=== PATIENT | male | born 1985 | race Caucasian/White ===

== ENCOUNTER 2020-08-22 01:31 | Inpatient (IN) | payer OTHER ==
[2020-08-22] MEDS ORDERED: ACETAMINOPHEN 1000 MG/100 ML VIAL (NON FORMULARY) IVPB ONE (01:58)
[2020-08-22 02:41] LABS: VENOUS O2 SATURATION 72.5 % (70-80); VENOUS PCO2 56.5 mmHg (38-52); VENOUS PH 7.345 (7.310-7.410)
[2020-08-22 02:46] LABS: BASO % 0.3 % (0-2.0); EOS % 0.2 % (0-4.5); HEMATOCRIT 38.9 % (35.4-49); HEMOGLOBIN 13.3 GM/dL (11.7-16.9); LYMPH % 14.6 % (8-40); MCH 30.7 pg (25.7-33.7); MCHC 34.3 g/dl (32.0-35.9); MEAN CELL VOLUME 89.7 fl (80-96); MEAN PLT VOLUME 8.2 fl (7.5-11.1); MONO % 12.9 % (3.8-10.2); PLATELET COUNT 172 K/MM3 (134-434); RBC 4.34 M/mm3 (4.00-5.60); RDW 13.8 % (11.9-15.9); WHITE BLOOD COUNT 5.7 K/mm3 (4.0-10.0)
[2020-08-22] MEDS ORDERED: DEXAMETHASONE SOD PHOSPHATE 10 MG/1 ML VIAL IVPUSH ONE (03:09)
[2020-08-22] MEDS ORDERED: LACTATED RINGERS SOLUTION 1000 ML INFUS.BAG IV ONE (03:09)
[2020-08-22 03:11] LABS: CHLORIDE 102 mmol/L (98-107); SODIUM 136 mmol/L (136-145)
[2020-08-22 03:13] LABS: BLOOD UREA NITROGEN 12.3 mg/dL (7-18); CALCIUM 8.2 mg/dL (8.5-10.1)
[2020-08-22 03:14] LABS: ALBUMIN 2.9 g/dl (3.4-5.0); ANION GAP 4 MMOL/L (8-16); CO2 30 mmol/L (21-32); GLUCOSE,RANDOM 105 mg/dL (74-106)
[2020-08-22 03:17] LABS: SGOT/AST 43 U/L (15-37); SGPT/ALT 35 U/L (13-61)
[2020-08-22 03:18] LABS: BILIRUBIN,TOTAL 0.2 mg/dL (0.2-1); LDH 286 U/L (87-246); TOT PROT 6.9 g/dl (6.4-8.2)
[2020-08-22 03:19] LABS: ALK PHOS 64 U/L (45-117)
[2020-08-22 03:32] LABS: INR 1.09 (0.83-1.09); PROTHROMBIN TIME (PATIENT) 13.1 SEC (9.7-13.0)
[2020-08-22 03:34] LABS: ACTIVATED PTT 33.2 SECONDS (25.2-36.5)
[2020-08-22] MEDS: SODIUM CHLORIDE 1,000 ML IV SCH (09:00)
[2020-08-22] MEDS ORDERED: ZINC SULFATE 220 MG CAPSULE (FP) ONE (09:14)
[2020-08-22] MEDS ORDERED: DEXAMETHASONE SOD PHOSPHATE 10 MG/1 ML VIAL ONE (09:14)
[2020-08-22] MEDS ORDERED: ENOXAPARIN NA (PORCINE) 40 MG/0.4 ML DISP.SYRIN SQ ONE (09:14)
[2020-08-22] MEDS ORDERED: ASCORBIC ACID 500 MG TABLET (FP) ONE (09:14)
[2020-08-22] MEDS ORDERED: FAMOTIDINE 20 MG/50 ML IVPB 20 MG/50 ML MG IVPB ONE (09:15)
[2020-08-22] MEDS: DEXAMETHASONE SOD PHOSPHATE 10 MG/1 ML VIAL IVPUSH SCH (09:47)
[2020-08-22] MEDS: ENOXAPARIN NA (PORCINE) 40 MG/0.4 ML DISP.SYRIN SQ SCH (09:47)
[2020-08-22] MEDS: ZINC SULFATE 220 MG CAPSULE (FP) PO SCH (09:47)
[2020-08-22] MEDS: ASCORBIC ACID 500 MG TABLET (FP) PO SCH (09:48)
[2020-08-22] MEDS: FAMOTIDINE 20 MG/50 ML IVPB 20 MG/50 ML MG IVPB SCH ×2 (09:48→21:42)
[2020-08-22 10:31] LABS: LDH 308 U/L (87-246)
[2020-08-22 11:46] LABS: PH,URINE 6.5 (5.0-8.0); URINE APPEARANCE CLEAR; URINE BILIRUBIN NEGATIVE (NEGATIVE); URINE COLOR YELLOW; URINE GLUCOSE (UA) NEGATIVE (NEGATIVE); URINE KETONE NEGATIVE (NEGATIVE); URINE PROTEIN NEGATIVE (NEGATIVE)
[2020-08-22 11:47] LABS: EPI CELLS 6.2 /uL (0-25.1); HYALINE CASTS 0.25 /uL (0-3.1); URINE BACTERIA 9.5 /uL (0-1359); URINE LEUK ESTERASE NEGATIVE (NEGATIVE); URINE NITRITE NEGATIVE (NEGATIVE); URINE RBC 8.4 /uL (0-23.9); URINE WBC 4.8 /uL (0-25.8)
[2020-08-22] MEDS ORDERED: DEXTROSE 5%-WATER - 50 ML IVPB ONE (14:38)
[2020-08-22] MEDS ORDERED: cefTRIAXone SODIUM 1 GM VIAL ONE (14:38)
[2020-08-22] MEDS: CEFTRIAXONE 1 GM in DEXTROSE 5%-WATER - 50 ML IVPB SCH (14:51)
[2020-08-22] MEDS ORDERED: REMDESIVIR 200 MG in SODIUM CHLORIDE 210 ML IVPB ONE (15:00)
[2020-08-22] MEDS: ACETAMINOPHEN 325 MG TABLET (FP) PO PRN (17:19)
[2020-08-22] MEDS ORDERED: TOCILIZUMAB (ACTEMRA) 200 MG/10 ML VIAL IVPB ONE (18:00)
[2020-08-22] MEDS ORDERED: TOCILIZUMAB 800 MG in SODIUM CHLORIDE 60 ML IVPB ONE (18:00)
[2020-08-23] MEDS: SODIUM CHLORIDE 1,000 ML IV SCH ×2 (05:48→09:11)
[2020-08-23] MEDS ORDERED: cefTRIAXone SODIUM 1 GM VIAL ONE (08:43)
[2020-08-23] MEDS ORDERED: DEXTROSE 5%-WATER - 50 ML IVPB ONE (08:43)
[2020-08-23] MEDS: DEXAMETHASONE SOD PHOSPHATE 10 MG/1 ML VIAL IVPUSH SCH (09:11)
[2020-08-23] MEDS: ENOXAPARIN NA (PORCINE) 40 MG/0.4 ML DISP.SYRIN SQ SCH (09:13)
[2020-08-23] MEDS: CEFTRIAXONE 1 GM in DEXTROSE 5%-WATER - 50 ML IVPB SCH (09:13)
[2020-08-23] MEDS: ZINC SULFATE 220 MG CAPSULE (FP) PO SCH (09:13)
[2020-08-23] MEDS: levETIRAcetam 500 MG TABLET (FP) PO SCH ×2 (09:13→21:06)
[2020-08-23] MEDS: ASCORBIC ACID 500 MG TABLET (FP) PO SCH (09:14)
[2020-08-23 09:37] LABS: BASO % 0.5 % (0-2.0); EOS % 0.1 % (0-4.5); HEMATOCRIT 38.2 % (35.4-49); HEMOGLOBIN 12.9 GM/dL (11.7-16.9); LYMPH % 30.6 % (8-40); MCH 30.6 pg (25.7-33.7); MCHC 33.6 g/dl (32.0-35.9); MONO % 19.3 % (3.8-10.2); NEUT % 49.5 % (42.8-82.8); PLATELET COUNT 220 K/MM3 (134-434); WHITE BLOOD COUNT 4.9 K/mm3 (4.0-10.0)
[2020-08-23 09:48] LABS: INR 1.02 (0.83-1.09); PROTHROMBIN TIME (PATIENT) 12.3 SEC (9.7-13.0)
[2020-08-23 10:07] LABS: ALBUMIN 2.7 g/dl (3.4-5.0); BLOOD UREA NITROGEN 9.9 mg/dL (7-18); CALCIUM 8.4 mg/dL (8.5-10.1); MAGNESIUM 2.5 mg/dL (1.8-2.4)
[2020-08-23 10:08] LABS: CREATININE 0.5 mg/dL (0.55-1.3); PHOSPHOROUS 3.2 mg/dL (2.5-4.9)
[2020-08-23 10:09] LABS: BILIRUBIN,TOTAL 0.3 mg/dL (0.2-1)
[2020-08-23 10:09] LABS: ARTERIAL BLD GAS O2 SATURATION 97.7 mmHg (95-98); ARTERIAL BLOOD GAS BASE EXCESS 2.3 mmol/L (-2-2); ARTERIAL BLOOD GAS pH 7.365 (7.350-7.450)
[2020-08-23 10:10] LABS: TOT PROT 6.3 g/dl (6.4-8.2)
[2020-08-23 10:10] LABS: ALLENS TEST POSITIVE
[2020-08-23] MEDS: FAMOTIDINE 20 MG/50 ML IVPB 20 MG/50 ML MG IVPB SCH ×2 (10:19→21:06)
[2020-08-23] MEDS ORDERED: VALPROATE SODIUM 250 MG/5 ML UNIT DOSE CUP PO ONE (11:57)
[2020-08-23] MEDS ORDERED: LORazepam 2 MG/ML SDV VIAL IVPUSH PRN (12:00)
[2020-08-23] MEDS ORDERED: risperiDONE 3 MG TABLET PO SCH (12:15)
[2020-08-23 12:33] LABS: ANISOCYTOSIS 0; MACROCYTOSIS 0; PLATELET ESTIMATE NORMAL
[2020-08-23] MEDS: BENZTROPINE MESYLATE 1 MG TABLET PO SCH ×2 (13:15→21:06)
[2020-08-23] MEDS: risperiDONE 1 MG TABLET PO SCH ×2 (13:15→21:06)
[2020-08-23] MEDS ORDERED: PT OWN MED DRAWER 7, Y5N ONE ×3 (13:17→21:01)
[2020-08-23] MEDS: REMDESIVIR 100 MG in SODIUM CHLORIDE 230 ML IVPB SCH (14:30)
[2020-08-23] MEDS: SODIUM CHLORIDE NASAL SPRAY 44 ML BOTTLE NS SCH (21:15)
[2020-08-23] MEDS ORDERED: DIVALPROEX SODIUM 500 MG TABLET E.C. PO SCH (22:00)
[2020-08-24] MEDS ORDERED: LORazepam 2 MG/ML SDV VIAL IVPUSH ONE (05:09)
[2020-08-24] MEDS ORDERED: MORPHINE SULFATE 2 MG/ML VIAL IVPUSH ONE ×2 (06:01→06:18)
[2020-08-24] MEDS ORDERED: morphine SULFATE 4 MG/ML VIAL ONE (06:06)
[2020-08-24] MEDS ORDERED: MIDAZOLAM HCL 2 MG/2 ML SINGLE DOSE VIAL ONE (06:41)
[2020-08-24] MEDS: SODIUM CHLORIDE NASAL SPRAY 44 ML BOTTLE NS SCH ×2 (06:41→14:24)
[2020-08-24] MEDS ORDERED: MIDAZOLAM HCL 2 MG/2 ML SINGLE DOSE VIAL IVPUSH ONE (06:43)
[2020-08-24 06:54] LABS: BASO % 0.3 % (0-2.0); HEMATOCRIT 38.7 % (35.4-49); HEMOGLOBIN 13.1 GM/dL (11.7-16.9); LYMPH % 34.3 % (8-40); MCH 30.8 pg (25.7-33.7); MCHC 33.9 g/dl (32.0-35.9); MEAN CELL VOLUME 90.9 fl (80-96); MEAN PLT VOLUME 7.7 fl (7.5-11.1); MONO % 16.9 % (3.8-10.2); NEUT % 48.5 % (42.8-82.8); PLATELET COUNT 291 K/MM3 (134-434); RBC 4.25 M/mm3 (4.00-5.60); RDW 13.9 % (11.9-15.9); WHITE BLOOD COUNT 6.8 K/mm3 (4.0-10.0)
[2020-08-24] MEDS ORDERED: DEXMEDETOMIDINE IN 0.9 % NACL 400 MCG/100 ML VIAL IVPB SCH (07:00)
[2020-08-24] MEDS ORDERED: KETAMINE HCL 200 MG/20 ML VIAL IVPUSH ONE (07:12)
[2020-08-24] MEDS ORDERED: SUCCINYLCHOLINE CHLORIDE 200 MG/10 ML VIAL IVPUSH ONE (07:13)
[2020-08-24] MEDS ORDERED: ROCURONIUM BROMIDE 50 MG/5 ML VIAL IV ONE (07:15)
[2020-08-24 07:17] LABS: ALBUMIN 2.8 g/dl (3.4-5.0); BLOOD UREA NITROGEN 13.2 mg/dL (7-18); CALCIUM 8.7 mg/dL (8.5-10.1)
[2020-08-24 07:18] LABS: MAGNESIUM 2.5 mg/dL (1.8-2.4)
[2020-08-24 07:21] LABS: CREATININE 0.8 mg/dL (0.55-1.3)
[2020-08-24 07:22] LABS: BILIRUBIN,TOTAL 0.3 mg/dL (0.2-1); TOT PROT 6.7 g/dl (6.4-8.2)
[2020-08-24] MEDS ORDERED: PHENYLEPHRINE HCL 10 MG/1 ML SINGLE DOSE VIAL ONE (07:39)
[2020-08-24] MEDS: PROPOFOL 1,000,000 MCG/100 ML VIAL IVPB SCH (09:17)
[2020-08-24] MEDS: PHENYLEPHRINE NS PREMIX 50,000 MCG/500 ML BAG CVP SCH (09:18)
[2020-08-24] MEDS ORDERED: FENTANYL NS IVPB 500 MCG/100 ML BAG IVPB ONE ×3 (09:23→18:03)
[2020-08-24] MEDS: FENTANYL IVPB 500 MCG/100 ML BAG IVPB SCH ×2 (09:25→19:27)
[2020-08-24] MEDS ORDERED: MIDAZOLAM 100 MG/100 ML MG IVPB ONE ×2 (09:38→16:46)
[2020-08-24] MEDS ORDERED: cefTRIAXone SODIUM 1 GM VIAL ONE (09:39)
[2020-08-24] MEDS ORDERED: levETIRAcetam 500 MG/5 ML INJECTION VIAL IVPB ONE (09:39)
[2020-08-24] MEDS ORDERED: DEXTROSE 5%-WATER - 50 ML IVPB ONE (09:39)
[2020-08-24] MEDS: MIDAZOLAM IN 0.9 % SOD.CHLORID 100 MG/100 ML PLAST..BAG IVPB SCH ×2 (09:40→16:58)
[2020-08-24] MEDS: DEXAMETHASONE SOD PHOSPHATE 10 MG/1 ML VIAL IVPUSH SCH (09:41)
[2020-08-24] MEDS: ENOXAPARIN NA (PORCINE) 40 MG/0.4 ML DISP.SYRIN SQ SCH ×2 (09:43→10:35)
[2020-08-24] MEDS: levETIRAcetam 500 MG TABLET (FP) PO SCH ×2 (09:43→10:30)
[2020-08-24] MEDS: ASCORBIC ACID 500 MG TABLET (FP) PO SCH (09:45)
[2020-08-24] MEDS: ZINC SULFATE 220 MG CAPSULE (FP) PO SCH (09:45)
[2020-08-24] MEDS: CEFTRIAXONE 1 GM in DEXTROSE 5%-WATER - 50 ML IVPB SCH (09:45)
[2020-08-24] MEDS: FAMOTIDINE 20 MG/50 ML IVPB 20 MG/50 ML MG IVPB SCH ×2 (09:45→21:50)
[2020-08-24 10:06] LABS: ARTERIAL BLD GAS O2 SATURATION 97.7 mmHg (95-98); ARTERIAL BLOOD GAS BASE EXCESS 3.4 mmol/L (-2-2); ARTERIAL BLOOD GAS pH 7.398 (7.350-7.450)
[2020-08-24 10:07] LABS: ALLENS TEST POSITIVE
[2020-08-24 10:20] LABS: ANISOCYTOSIS 0; MACROCYTOSIS 0; PLATELET ESTIMATE NORMAL
[2020-08-24] MEDS: levETIRAcetam 500 MG/5 ML INJECTION VIAL IVPB SCH ×2 (10:29→21:50)
[2020-08-24] MEDS ORDERED: ENOXAPARIN NA (PORCINE) 40 MG/0.4 ML DISP.SYRIN SQ SCH (10:30)
[2020-08-24] MEDS ORDERED: PT OWN MED DRAWER 7, Y5N ONE ×2 (10:48→14:45)
[2020-08-24] MEDS: BENZTROPINE MESYLATE 1 MG TABLET PO SCH ×2 (10:52→21:49)
[2020-08-24] MEDS: risperiDONE 1 MG TABLET PO SCH ×2 (10:53→21:49)
[2020-08-24] MEDS: VALPROATE SODIUM 250 MG/5 ML UNIT DOSE CUP PO SCH ×2 (11:14→23:06)
[2020-08-24] MEDS: REMDESIVIR 100 MG in SODIUM CHLORIDE 230 ML IVPB SCH (15:20)
[2020-08-24] MEDS: MUPIROCIN 2% TOPICAL OINTMENT FOR DECOLONIZATION NS SCH (22:00)
[2020-08-24] MEDS: CHLORHEXIDINE GLUCONATE 4% CLEANSER FOR DECOLONIZATION TP SCH (22:00)
[2020-08-25] MEDS ORDERED: FENTANYL NS IVPB 500 MCG/100 ML BAG IVPB ONE ×2 (00:19→06:09)
[2020-08-25] MEDS ORDERED: MIDAZOLAM 100 MG/100 ML MG IVPB ONE ×2 (02:50→13:08)
[2020-08-25 06:43] LABS: ARTERIAL BLD GAS O2 SATURATION 84.2 mmHg (95-98); ARTERIAL BLOOD GAS BASE EXCESS 0.5 mmol/L (-2-2); ARTERIAL BLOOD GAS PO2 47.1 mmHg (80-100); ARTERIAL BLOOD GAS pH 7.427 (7.350-7.450)
[2020-08-25 06:53] LABS: ALLENS TEST POSITIVE
[2020-08-25 06:54] LABS: VENT MODE A/C; VENT RATE 30
[2020-08-25] MEDS: PROPOFOL 1,000,000 MCG/100 ML VIAL IVPB SCH (07:00)
[2020-08-25] MEDS: PHENYLEPHRINE NS PREMIX 50,000 MCG/500 ML BAG CVP SCH (07:00)
[2020-08-25 07:40] LABS: BASO % 0.2 % (0-2.0); HEMATOCRIT 36.1 % (35.4-49); HEMOGLOBIN 12.5 GM/dL (11.7-16.9); MCH 30.9 pg (25.7-33.7); MCHC 34.6 g/dl (32.0-35.9); MEAN CELL VOLUME 89.2 fl (80-96); MEAN PLT VOLUME 7.5 fl (7.5-11.1); MONO % 16.5 % (3.8-10.2); NEUT % 52.3 % (42.8-82.8); PLATELET COUNT 298 K/MM3 (134-434); RBC 4.05 M/mm3 (4.00-5.60); RDW 14.1 % (11.9-15.9); WHITE BLOOD COUNT 6.2 K/mm3 (4.0-10.0)
[2020-08-25 07:41] LABS: CHLORIDE 106 mmol/L (98-107); SODIUM 140 mmol/L (136-145)
[2020-08-25 07:49] LABS: CREATININE 0.6 mg/dL (0.55-1.3)
[2020-08-25 07:51] LABS: BILIRUBIN,TOTAL 0.2 mg/dL (0.2-1); BLOOD UREA NITROGEN 18.9 mg/dL (7-18); CALCIUM 8.4 mg/dL (8.5-10.1)
[2020-08-25 07:52] LABS: ALBUMIN 2.6 g/dl (3.4-5.0); ALK PHOS 50 U/L (45-117); CO2 26 mmol/L (21-32); GLUCOSE,RANDOM 121 mg/dL (74-106); LDH 390 U/L (87-246); MAGNESIUM 2.5 mg/dL (1.8-2.4)
[2020-08-25 07:54] LABS: PHOSPHOROUS 4.3 mg/dL (2.5-4.9); SGOT/AST 49 U/L (15-37); SGPT/ALT 42 U/L (13-61)
[2020-08-25 07:57] LABS: ANION GAP 8 MMOL/L (8-16)
[2020-08-25 09:20] LABS: ANISOCYTOSIS 1+; MACROCYTOSIS 0; PLATELET ESTIMATE NORMAL
[2020-08-25] MEDS ORDERED: cefTRIAXone SODIUM 1 GM VIAL ONE (09:36)
[2020-08-25] MEDS ORDERED: DEXTROSE 5%-WATER - 50 ML IVPB ONE (09:36)
[2020-08-25] MEDS: CEFTRIAXONE 1 GM in DEXTROSE 5%-WATER - 50 ML IVPB SCH (09:58)
[2020-08-25] MEDS: FAMOTIDINE 20 MG/50 ML IVPB 20 MG/50 ML MG IVPB SCH ×2 (09:59→21:00)
[2020-08-25] MEDS: ENOXAPARIN NA (PORCINE) 40 MG/0.4 ML DISP.SYRIN SQ SCH ×2 (09:59→21:22)
[2020-08-25] MEDS: levETIRAcetam 500 MG/5 ML INJECTION VIAL IVPB SCH ×2 (09:59→21:22)
[2020-08-25] MEDS: DEXAMETHASONE SOD PHOSPHATE 10 MG/1 ML VIAL IVPUSH SCH (10:00)
[2020-08-25] MEDS: MUPIROCIN 2% TOPICAL OINTMENT FOR DECOLONIZATION NS SCH ×2 (10:04→22:08)
[2020-08-25] MEDS: VALPROATE SODIUM 250 MG/5 ML UNIT DOSE CUP PO SCH ×2 (10:06→22:54)
[2020-08-25] MEDS: risperiDONE 1 MG TABLET PO SCH ×2 (10:06→21:22)
[2020-08-25] MEDS: ZINC SULFATE 220 MG CAPSULE (FP) PO SCH (10:06)
[2020-08-25] MEDS: BENZTROPINE MESYLATE 1 MG TABLET PO SCH ×2 (10:06→21:22)
[2020-08-25] MEDS: DOPAMINE 400 MG/D5W - 400,000 MCG/250 ML INFUS.BAG IVPB SCH (10:39)
[2020-08-25] MEDS: ASCORBIC ACID 500 MG TABLET (FP) PO SCH (10:40)
[2020-08-25] MEDS: MIDAZOLAM IN 0.9 % SOD.CHLORID 100 MG/100 ML PLAST..BAG IVPB SCH (13:16)
[2020-08-25] MEDS: FENTANYL IVPB 500 MCG/100 ML BAG IVPB SCH (13:17)
[2020-08-25] MEDS ORDERED: PT OWN MED DRAWER 7, Y5N ONE (15:33)
[2020-08-25] MEDS: REMDESIVIR 100 MG in SODIUM CHLORIDE 230 ML IVPB SCH (15:35)
[2020-08-25] MEDS: CHLORHEXIDINE GLUCONATE 4% CLEANSER FOR DECOLONIZATION TP SCH (22:08)
[2020-08-26] MEDS ORDERED: MIDAZOLAM 100 MG/100 ML MG IVPB ONE ×3 (01:49→21:06)
[2020-08-26 07:10] LABS: BASO % 0.4 % (0-2.0); HEMATOCRIT 39.2 % (35.4-49); HEMOGLOBIN 13.4 GM/dL (11.7-16.9); LYMPH % 27.7 % (8-40); MCH 30.6 pg (25.7-33.7); MCHC 34.3 g/dl (32.0-35.9); MEAN CELL VOLUME 89.2 fl (80-96); MEAN PLT VOLUME 7.4 fl (7.5-11.1); MONO % 13.9 % (3.8-10.2); PLATELET COUNT 311 K/MM3 (134-434); RBC 4.39 M/mm3 (4.00-5.60); WHITE BLOOD COUNT 8.9 K/mm3 (4.0-10.0)
[2020-08-26 07:37] LABS: BLOOD UREA NITROGEN 13.6 mg/dL (7-18); CALCIUM 8.6 mg/dL (8.5-10.1)
[2020-08-26 07:38] LABS: ALBUMIN 2.7 g/dl (3.4-5.0)
[2020-08-26 07:39] LABS: MAGNESIUM 2.2 mg/dL (1.8-2.4)
[2020-08-26 07:40] LABS: CREATININE 0.6 mg/dL (0.55-1.3)
[2020-08-26 07:41] LABS: PHOSPHOROUS 3.6 mg/dL (2.5-4.9)
[2020-08-26 07:42] LABS: BILIRUBIN,TOTAL 0.3 mg/dL (0.2-1); TOT PROT 6.3 g/dl (6.4-8.2)
[2020-08-26] MEDS: PROPOFOL 1,000,000 MCG/100 ML VIAL IVPB SCH (07:48)
[2020-08-26] MEDS: PHENYLEPHRINE NS PREMIX 50,000 MCG/500 ML BAG CVP SCH (07:48)
[2020-08-26] MEDS: KCL 10 MEQ IVPB 10 MEQ/100 ML INFUS.BAG IVPB SCH ×3 (08:28→11:03)
[2020-08-26 08:48] LABS: ANISOCYTOSIS 0; HELMET CELLS 0; HOWELL-JOLLY BODIES 0; MACROCYTOSIS 0; OVALOCYTE 0; PLATELET ESTIMATE NORMAL; ROULEAU 0; SICKELED CELLS 0; TARGET CELLS 0; TEAR DROP CELLS 0; TOXIC GRANULATION 0
[2020-08-26] MEDS: VALPROATE SODIUM 250 MG/5 ML UNIT DOSE CUP PO SCH ×2 (10:49→21:31)
[2020-08-26] MEDS: BENZTROPINE MESYLATE 1 MG TABLET PO SCH (10:49)
[2020-08-26] MEDS: MUPIROCIN 2% TOPICAL OINTMENT FOR DECOLONIZATION NS SCH ×2 (10:54→21:31)
[2020-08-26] MEDS: levETIRAcetam 500 MG/5 ML INJECTION VIAL IVPB SCH ×2 (11:00→21:31)
[2020-08-26] MEDS: ENOXAPARIN NA (PORCINE) 40 MG/0.4 ML DISP.SYRIN SQ SCH ×2 (11:00→21:31)
[2020-08-26] MEDS: ZINC SULFATE 220 MG CAPSULE (FP) PO SCH (11:01)
[2020-08-26] MEDS: ASCORBIC ACID 500 MG TABLET (FP) PO SCH (11:01)
[2020-08-26] MEDS: FAMOTIDINE 20 MG/50 ML IVPB 20 MG/50 ML MG IVPB SCH ×2 (11:02→21:30)
[2020-08-26] MEDS: DEXAMETHASONE SOD PHOSPHATE 10 MG/1 ML VIAL IVPUSH SCH (11:02)
[2020-08-26] MEDS: risperiDONE 1 MG TABLET PO SCH (11:02)
[2020-08-26] MEDS: DOPAMINE 400 MG/D5W - 400,000 MCG/250 ML INFUS.BAG IVPB SCH (11:42)
[2020-08-26] MEDS: MIDAZOLAM IN 0.9 % SOD.CHLORID 100 MG/100 ML PLAST..BAG IVPB SCH (11:42)
[2020-08-26] MEDS: FENTANYL IVPB 500 MCG/100 ML BAG IVPB SCH (11:43)
[2020-08-26] MEDS: REMDESIVIR 100 MG in SODIUM CHLORIDE 230 ML IVPB SCH (14:36)
[2020-08-26] MEDS ORDERED: PT OWN MED DRAWER 7, Y5N ONE ×2 (18:39→21:24)
[2020-08-26] MEDS: CHLORHEXIDINE GLUCONATE 4% CLEANSER FOR DECOLONIZATION TP SCH (21:31)
[2020-08-27] MEDS: BENZTROPINE MESYLATE 1 MG TABLET PO SCH ×3 (00:23→21:34)
[2020-08-27] MEDS: risperiDONE 1 MG TABLET PO SCH ×3 (00:23→21:35)
[2020-08-27] MEDS ORDERED: FENTANYL NS IVPB 500 MCG/100 ML BAG IVPB ONE (02:50)
[2020-08-27 07:13] LABS: BASO % 0.2 % (0-2.0); HEMATOCRIT 40.4 % (35.4-49); HEMOGLOBIN 13.6 GM/dL (11.7-16.9); LYMPH % 21.8 % (8-40); MCH 30.2 pg (25.7-33.7); MCHC 33.7 g/dl (32.0-35.9); MEAN CELL VOLUME 89.8 fl (80-96); MEAN PLT VOLUME 7.5 fl (7.5-11.1); PLATELET COUNT 302 K/MM3 (134-434); RDW 13.9 % (11.9-15.9); WHITE BLOOD COUNT 9.7 K/mm3 (4.0-10.0)
[2020-08-27 07:30] LABS: ALBUMIN 2.8 g/dl (3.4-5.0); BLOOD UREA NITROGEN 11.7 mg/dL (7-18); CALCIUM 8.5 mg/dL (8.5-10.1); MAGNESIUM 2.3 mg/dL (1.8-2.4)
[2020-08-27 07:33] LABS: PHOSPHOROUS 3.8 mg/dL (2.5-4.9)
[2020-08-27 07:34] LABS: CREATININE 0.6 mg/dL (0.55-1.3)
[2020-08-27 07:35] LABS: BILIRUBIN,TOTAL 0.4 mg/dL (0.2-1); TOT PROT 6.1 g/dl (6.4-8.2)
[2020-08-27] MEDS: AMINO ACIDS/PROTEIN HYDROLYS 30 ML LIQUID.PKT PO SCH (09:47)
[2020-08-27] MEDS: ENOXAPARIN NA (PORCINE) 40 MG/0.4 ML DISP.SYRIN SQ SCH ×2 (09:47→21:35)
[2020-08-27] MEDS: FAMOTIDINE 20 MG/50 ML IVPB 20 MG/50 ML MG IVPB SCH ×2 (09:47→21:35)
[2020-08-27] MEDS: levETIRAcetam 500 MG/5 ML INJECTION VIAL IVPB SCH ×2 (09:47→21:34)
[2020-08-27] MEDS: DEXAMETHASONE SOD PHOSPHATE 10 MG/1 ML VIAL IVPUSH SCH (09:47)
[2020-08-27] MEDS: ASCORBIC ACID 500 MG TABLET (FP) PO SCH (09:49)
[2020-08-27] MEDS: ZINC SULFATE 220 MG CAPSULE (FP) PO SCH (09:49)
[2020-08-27] MEDS: VALPROATE SODIUM 250 MG/5 ML UNIT DOSE CUP PO SCH ×2 (09:50→21:34)
[2020-08-27] MEDS: PROPOFOL 1,000,000 MCG/100 ML VIAL IVPB SCH ×2 (10:30→21:36)
[2020-08-27 11:53] LABS: ANISOCYTOSIS 0; MACROCYTOSIS 0; OVALOCYTE 1+; PLATELET ESTIMATE NORMAL
[2020-08-27] MEDS: PHENYLEPHRINE NS PREMIX 50,000 MCG/500 ML BAG CVP SCH (12:58)
[2020-08-27] MEDS: DOPAMINE 400 MG/D5W - 400,000 MCG/250 ML INFUS.BAG IVPB SCH (13:01)
[2020-08-27] MEDS: MUPIROCIN 2% TOPICAL OINTMENT FOR DECOLONIZATION NS SCH ×2 (13:02→21:33)
[2020-08-27] MEDS: DEXMEDETOMIDINE IN 0.9 % NACL 400 MCG/100 ML VIAL IVPB SCH ×2 (13:02→20:00)
[2020-08-27] MEDS: REMDESIVIR 100 MG in SODIUM CHLORIDE 250 ML IVPB SCH (14:48)
[2020-08-27] MEDS ORDERED: PT OWN MED DRAWER 7, Y5N ONE ×2 (18:20→21:08)
[2020-08-27] MEDS: CHLORHEXIDINE GLUCONATE 4% CLEANSER FOR DECOLONIZATION TP SCH (21:34)
[2020-08-28] MEDS: PROPOFOL 1,000,000 MCG/100 ML VIAL IVPB SCH (06:25)
[2020-08-28] MEDS: DEXMEDETOMIDINE IN 0.9 % NACL 400 MCG/100 ML VIAL IVPB SCH ×2 (06:26→17:14)
[2020-08-28 07:18] LABS: BASO % 0.2 % (0-2.0); EOS % 0.1 % (0-4.5); HEMATOCRIT 41.2 % (35.4-49); HEMOGLOBIN 13.9 GM/dL (11.7-16.9); LYMPH % 18.2 % (8-40); MCH 30.2 pg (25.7-33.7); MCHC 33.7 g/dl (32.0-35.9); MEAN CELL VOLUME 89.6 fl (80-96); MEAN PLT VOLUME 7.6 fl (7.5-11.1); NEUT % 71.5 % (42.8-82.8); PLATELET COUNT 309 K/MM3 (134-434); WHITE BLOOD COUNT 12.7 K/mm3 (4.0-10.0)
[2020-08-28] MEDS: PHENYLEPHRINE NS PREMIX 50,000 MCG/500 ML BAG CVP SCH (07:24)
[2020-08-28 07:41] LABS: CHLORIDE 110 mmol/L (98-107); SODIUM 141 mmol/L (136-145)
[2020-08-28 07:45] LABS: ALBUMIN 2.8 g/dl (3.4-5.0); ANION GAP 5 MMOL/L (8-16); CO2 27 mmol/L (21-32); GLUCOSE,RANDOM 113 mg/dL (74-106)
[2020-08-28 07:46] LABS: CALCIUM 8.7 mg/dL (8.5-10.1); MAGNESIUM 2.4 mg/dL (1.8-2.4)
[2020-08-28 07:48] LABS: CREATININE 0.5 mg/dL (0.55-1.3); PHOSPHOROUS 3.1 mg/dL (2.5-4.9); SGOT/AST 42 U/L (15-37); SGPT/ALT 55 U/L (13-61)
[2020-08-28 07:49] LABS: BILIRUBIN,TOTAL 0.4 mg/dL (0.2-1); LDH 313 U/L (87-246); TOT PROT 6.4 g/dl (6.4-8.2)
[2020-08-28 07:51] LABS: ALK PHOS 63 U/L (45-117)
[2020-08-28] MEDS: FAMOTIDINE 20 MG/50 ML IVPB 20 MG/50 ML MG IVPB SCH ×2 (10:00→21:33)
[2020-08-28] MEDS ORDERED: PT OWN MED DRAWER 7, Y5N ONE ×3 (10:09→21:07)
[2020-08-28] MEDS: AMINO ACIDS/PROTEIN HYDROLYS 30 ML LIQUID.PKT PO SCH (10:53)
[2020-08-28] MEDS: VALPROATE SODIUM 250 MG/5 ML UNIT DOSE CUP PO SCH ×2 (10:53→21:35)
[2020-08-28] MEDS: risperiDONE 1 MG TABLET PO SCH ×2 (10:55→21:35)
[2020-08-28] MEDS: ENOXAPARIN NA (PORCINE) 40 MG/0.4 ML DISP.SYRIN SQ SCH ×2 (10:55→21:32)
[2020-08-28] MEDS: ZINC SULFATE 220 MG CAPSULE (FP) PO SCH (10:55)
[2020-08-28] MEDS: ASCORBIC ACID 500 MG TABLET (FP) PO SCH (10:55)
[2020-08-28] MEDS: DEXAMETHASONE SOD PHOSPHATE 10 MG/1 ML VIAL IVPUSH SCH (10:55)
[2020-08-28] MEDS: BENZTROPINE MESYLATE 1 MG TABLET PO SCH ×2 (10:55→21:35)
[2020-08-28] MEDS: KCL 10 MEQ IVPB 10 MEQ/100 ML INFUS.BAG IVPB SCH ×3 (10:56→16:04)
[2020-08-28] MEDS: MUPIROCIN 2% TOPICAL OINTMENT FOR DECOLONIZATION NS SCH ×2 (10:56→21:33)
[2020-08-28] MEDS: DOPAMINE 400 MG/D5W - 400,000 MCG/250 ML INFUS.BAG IVPB SCH (10:56)
[2020-08-28] MEDS: levETIRAcetam 500 MG/5 ML INJECTION VIAL IVPB SCH ×2 (10:56→21:32)
[2020-08-28 11:59] LABS: ANISOCYTOSIS 1+; MACROCYTOSIS 1+; PLATELET ESTIMATE NORMAL
[2020-08-28] MEDS ORDERED: DOPAMINE 400 MG/D5W - 400,000 MCG/250 ML INFUS.BAG IVPB ONE (13:19)
[2020-08-28] MEDS: POLYETHYLENE GLYCOL 3350 119 GM BTL PO SCH (16:04)
[2020-08-28] MEDS: REMDESIVIR 100 MG in SODIUM CHLORIDE 250 ML IVPB SCH (16:09)
[2020-08-28] MEDS: CHLORHEXIDINE GLUCONATE 4% CLEANSER FOR DECOLONIZATION TP SCH (21:32)
[2020-08-28] MEDS: FENTANYL NS IVPB 500 MCG/100 ML BAG IVPB SCH (21:33)
[2020-08-29 07:52] LABS: HEMATOCRIT 40.8 % (35.4-49); HEMOGLOBIN 13.6 GM/dL (11.7-16.9); MCH 30.3 pg (25.7-33.7); MCHC 33.5 g/dl (32.0-35.9); MEAN CELL VOLUME 90.6 fl (80-96); MEAN PLT VOLUME 8.3 fl (7.5-11.1); PLATELET COUNT 304 K/MM3 (134-434); RDW 14.1 % (11.9-15.9); WHITE BLOOD COUNT 13.2 K/mm3 (4.0-10.0)
[2020-08-29 07:59] LABS: CHLORIDE 108 mmol/L (98-107); SODIUM 142 mmol/L (136-145)
[2020-08-29 08:03] LABS: ALBUMIN 2.8 g/dl (3.4-5.0); ANION GAP 8 MMOL/L (8-16); BLOOD UREA NITROGEN 18.8 mg/dL (7-18); CALCIUM 8.2 mg/dL (8.5-10.1); CO2 26 mmol/L (21-32); GLUCOSE,RANDOM 89 mg/dL (74-106); MAGNESIUM 2.3 mg/dL (1.8-2.4)
[2020-08-29 08:06] LABS: CREATININE 0.6 mg/dL (0.55-1.3); SGOT/AST 38 U/L (15-37); SGPT/ALT 59 U/L (13-61)
[2020-08-29 08:07] LABS: PHOSPHOROUS 4.7 mg/dL (2.5-4.9)
[2020-08-29 08:08] LABS: BILIRUBIN,TOTAL 0.4 mg/dL (0.2-1); TOT PROT 6.2 g/dl (6.4-8.2)
[2020-08-29 08:09] LABS: ALK PHOS 62 U/L (45-117)
[2020-08-29 08:25] LABS: LDH 303 U/L (87-246)
[2020-08-29] MEDS: AMINO ACIDS/PROTEIN HYDROLYS 30 ML LIQUID.PKT PO SCH ×2 (09:03→18:20)
[2020-08-29] MEDS ORDERED: PT OWN MED DRAWER 7, Y5N ONE ×2 (09:37→15:08)
[2020-08-29] MEDS: FAMOTIDINE 20 MG/50 ML IVPB 20 MG/50 ML MG IVPB SCH ×2 (09:42→22:28)
[2020-08-29] MEDS: risperiDONE 1 MG TABLET PO SCH ×2 (09:43→22:29)
[2020-08-29] MEDS: DEXAMETHASONE SOD PHOSPHATE 10 MG/1 ML VIAL IVPUSH SCH (09:43)
[2020-08-29] MEDS: ENOXAPARIN NA (PORCINE) 40 MG/0.4 ML DISP.SYRIN SQ SCH ×2 (09:43→22:28)
[2020-08-29] MEDS: VALPROATE SODIUM 250 MG/5 ML UNIT DOSE CUP PO SCH ×2 (09:43→22:27)
[2020-08-29] MEDS: BENZTROPINE MESYLATE 1 MG TABLET PO SCH ×2 (09:44→22:28)
[2020-08-29] MEDS: DOPAMINE 400 MG/D5W - 400,000 MCG/250 ML INFUS.BAG IVPB SCH (10:06)
[2020-08-29] MEDS: levETIRAcetam 500 MG/5 ML INJECTION VIAL IVPB SCH ×2 (10:53→22:28)
[2020-08-29] MEDS: PHENYLEPHRINE NS PREMIX 50,000 MCG/500 ML BAG CVP SCH (12:03)
[2020-08-29] MEDS: PROPOFOL 1,000,000 MCG/100 ML VIAL IVPB SCH (12:03)
[2020-08-29] MEDS: ASCORBIC ACID 500 MG TABLET (FP) PO SCH (12:04)
[2020-08-29] MEDS: POLYETHYLENE GLYCOL 3350 119 GM BTL PO SCH (12:04)
[2020-08-29] MEDS: ZINC SULFATE 220 MG CAPSULE (FP) PO SCH (12:04)
[2020-08-29] MEDS: MUPIROCIN 2% TOPICAL OINTMENT FOR DECOLONIZATION NS SCH (12:10)
[2020-08-29] MEDS: REMDESIVIR 100 MG in SODIUM CHLORIDE 250 ML IVPB SCH (15:19)
[2020-08-29] MEDS: FENTANYL NS IVPB 500 MCG/100 ML BAG IVPB SCH (19:00)
[2020-08-29] MEDS: SODIUM CHLORIDE 1,000 ML IV SCH ×2 (20:24→22:29)
[2020-08-29] MEDS: CHLORHEXIDINE GLUCONATE 4% CLEANSER FOR DECOLONIZATION TP SCH (22:28)
[2020-08-29] MEDS ORDERED: METOPROLOL TARTRATE 5 MG/5 ML VIAL IVPUSH ONE (22:45)
[2020-08-30] MEDS ORDERED: METOPROLOL TARTRATE 5 MG/5 ML VIAL IVPUSH ONE ×2 (00:15→22:34)
[2020-08-30] MEDS ORDERED: LORazepam 2 MG/ML SDV VIAL IVPUSH ONE (00:28)
[2020-08-30] MEDS ORDERED: LORazepam 2 MG/ML SDV VIAL ONE (00:30)
[2020-08-30] MEDS ORDERED: HALOPERIDOL LACTATE 5 MG/ML IM ONE (00:33)
[2020-08-30 07:06] LABS: BASO % 0.1 % (0-2.0); EOS % 0.3 % (0-4.5); HEMATOCRIT 43.5 % (35.4-49); HEMOGLOBIN 14.4 GM/dL (11.7-16.9); LYMPH % 27.1 % (8-40); MCH 30.2 pg (25.7-33.7); MCHC 33.1 g/dl (32.0-35.9); MEAN CELL VOLUME 91.1 fl (80-96); MEAN PLT VOLUME 7.6 fl (7.5-11.1); MONO % 10.5 % (3.8-10.2); PLATELET COUNT 293 K/MM3 (134-434); RBC 4.77 M/mm3 (4.00-5.60); RDW 14.6 % (11.9-15.9); WHITE BLOOD COUNT 12.5 K/mm3 (4.0-10.0)
[2020-08-30 07:24] LABS: CHLORIDE 104 mmol/L (98-107); SODIUM 140 mmol/L (136-145)
[2020-08-30 07:29] LABS: ALBUMIN 3.2 g/dl (3.4-5.0); CALCIUM 9.1 mg/dL (8.5-10.1)
[2020-08-30 07:30] LABS: ANION GAP 5 MMOL/L (8-16); BLOOD UREA NITROGEN 17.2 mg/dL (7-18); CO2 31 mmol/L (21-32); GLUCOSE,RANDOM 80 mg/dL (74-106); MAGNESIUM 2.3 mg/dL (1.8-2.4)
[2020-08-30 07:32] LABS: SGPT/ALT 76 U/L (13-61)
[2020-08-30 07:33] LABS: BILIRUBIN,TOTAL 0.6 mg/dL (0.2-1); CREATININE 0.8 mg/dL (0.55-1.3); LDH 279 U/L (87-246); PHOSPHOROUS 4.6 mg/dL (2.5-4.9); SGOT/AST 60 U/L (15-37); TOT PROT 6.6 g/dl (6.4-8.2)
[2020-08-30 07:35] LABS: ALK PHOS 60 U/L (45-117)
[2020-08-30] MEDS: AMINO ACIDS/PROTEIN HYDROLYS 30 ML LIQUID.PKT PO SCH ×2 (09:00→18:22)
[2020-08-30] MEDS ORDERED: PT OWN MED DRAWER 7, Y5N ONE ×3 (09:56→21:14)
[2020-08-30] MEDS: levETIRAcetam 500 MG/5 ML INJECTION VIAL IVPB SCH ×2 (10:00→21:29)
[2020-08-30] MEDS: ASCORBIC ACID 500 MG TABLET (FP) PO SCH (10:01)
[2020-08-30] MEDS: DEXAMETHASONE SOD PHOSPHATE 10 MG/1 ML VIAL IVPUSH SCH (10:01)
[2020-08-30] MEDS: ENOXAPARIN NA (PORCINE) 40 MG/0.4 ML DISP.SYRIN SQ SCH ×2 (10:01→21:29)
[2020-08-30] MEDS: BENZTROPINE MESYLATE 1 MG TABLET PO SCH ×2 (10:02→21:28)
[2020-08-30] MEDS: risperiDONE 1 MG TABLET PO SCH ×2 (10:02→21:29)
[2020-08-30] MEDS: ZINC SULFATE 220 MG CAPSULE (FP) PO SCH (10:03)
[2020-08-30] MEDS: VALPROATE SODIUM 250 MG/5 ML UNIT DOSE CUP PO SCH ×2 (10:03→21:28)
[2020-08-30] MEDS: SODIUM CHLORIDE 1,000 ML IV SCH (10:05)
[2020-08-30] MEDS: FAMOTIDINE 20 MG/50 ML IVPB 20 MG/50 ML MG IVPB SCH ×2 (10:30→21:29)
[2020-08-30] MEDS: ACETAMINOPHEN 325 MG TABLET (FP) PO PRN (10:38)
[2020-08-30] MEDS: POLYETHYLENE GLYCOL 3350 119 GM BTL PO SCH (10:47)
[2020-08-30 11:49] LABS: ANISOCYTOSIS 0; MACROCYTOSIS 0; PLATELET ESTIMATE NORMAL
[2020-08-30] MEDS: REMDESIVIR 100 MG in SODIUM CHLORIDE 250 ML IVPB SCH (16:00)
[2020-08-30] MEDS: FENTANYL NS IVPB 500 MCG/100 ML BAG IVPB SCH (21:24)
[2020-08-30] MEDS: CHLORHEXIDINE GLUCONATE 4% CLEANSER FOR DECOLONIZATION TP SCH (21:28)
[2020-08-30] MEDS ORDERED: MELATONIN 5 MG TABLETS PO ONE (22:34)
[2020-08-31] MEDS: FAMOTIDINE 20 MG/50 ML IVPB 20 MG/50 ML MG IVPB SCH (09:27)
[2020-08-31] MEDS: AMINO ACIDS/PROTEIN HYDROLYS 30 ML LIQUID.PKT PO SCH ×2 (09:36→17:28)
[2020-08-31] MEDS: ENOXAPARIN NA (PORCINE) 40 MG/0.4 ML DISP.SYRIN SQ SCH ×2 (09:36→21:47)
[2020-08-31] MEDS: levETIRAcetam 500 MG/5 ML INJECTION VIAL IVPB SCH (09:37)
[2020-08-31] MEDS: VALPROATE SODIUM 250 MG/5 ML UNIT DOSE CUP PO SCH ×2 (09:37→21:47)
[2020-08-31] MEDS: risperiDONE 1 MG TABLET PO SCH ×2 (09:37→21:48)
[2020-08-31] MEDS: DEXAMETHASONE SOD PHOSPHATE 10 MG/1 ML VIAL IVPUSH SCH (09:38)
[2020-08-31] MEDS: ZINC SULFATE 220 MG CAPSULE (FP) PO SCH (09:38)
[2020-08-31] MEDS: BENZTROPINE MESYLATE 1 MG TABLET PO SCH ×2 (09:38→21:49)
[2020-08-31] MEDS: ASCORBIC ACID 500 MG TABLET (FP) PO SCH (09:38)
[2020-08-31] MEDS: POLYETHYLENE GLYCOL 3350 119 GM BTL PO SCH (09:39)
[2020-08-31] MEDS: REMDESIVIR 100 MG in SODIUM CHLORIDE 250 ML IVPB SCH (15:30)
[2020-08-31] MEDS: DEXMEDETOMIDINE IN 0.9 % NACL 400 MCG/100 ML VIAL IVPB SCH (19:28)
[2020-08-31] MEDS ORDERED: PT OWN MED DRAWER 7, Y5N ONE (21:31)
[2020-08-31] MEDS ORDERED: MELATONIN 5 MG TABLETS PO ONE (21:36)
[2020-08-31] MEDS: CHLORHEXIDINE GLUCONATE 4% CLEANSER FOR DECOLONIZATION TP SCH (21:49)
[2020-08-31] MEDS ORDERED: levETIRAcetam 500 MG TABLET (FP) PO SCH (22:00)
[2020-08-31] MEDS ORDERED: ACETAMINOPHEN 325 MG TABLET (FP) PO PRN (23:14)
[2020-09-01 07:25] LABS: BASO % 0.5 % (0-2.0); EOS % 0.5 % (0-4.5); HEMATOCRIT 42.1 % (35.4-49); HEMOGLOBIN 14.1 GM/dL (11.7-16.9); LYMPH % 28.1 % (8-40); MCH 30.6 pg (25.7-33.7); MCHC 33.5 g/dl (32.0-35.9); MEAN CELL VOLUME 91.4 fl (80-96); MEAN PLT VOLUME 8.2 fl (7.5-11.1); MONO % 13.3 % (3.8-10.2); NEUT % 57.6 % (42.8-82.8); PLATELET COUNT 289 K/MM3 (134-434); RBC 4.61 M/mm3 (4.00-5.60); RDW 14.6 % (11.9-15.9); WHITE BLOOD COUNT 11.3 K/mm3 (4.0-10.0)
[2020-09-01 07:51] LABS: ALBUMIN 3.3 g/dl (3.4-5.0); CALCIUM 9.8 mg/dL (8.5-10.1)
[2020-09-01 07:52] LABS: BLOOD UREA NITROGEN 23.7 mg/dL (7-18); MAGNESIUM 2.4 mg/dL (1.8-2.4)
[2020-09-01 07:55] LABS: BILIRUBIN,TOTAL 0.7 mg/dL (0.2-1); CREATININE 0.7 mg/dL (0.55-1.3); PHOSPHOROUS 3.7 mg/dL (2.5-4.9); TOT PROT 6.8 g/dl (6.4-8.2)
[2020-09-01] MEDS: AMINO ACIDS/PROTEIN HYDROLYS 30 ML LIQUID.PKT PO SCH ×2 (08:38→17:06)
[2020-09-01] MEDS ORDERED: TAMSULOSIN HCL 0.4 MG CAP PO ONE ×2 (09:00→19:00)
[2020-09-01] MEDS: ZINC SULFATE 220 MG CAPSULE (FP) PO SCH (09:39)
[2020-09-01] MEDS: ASCORBIC ACID 500 MG TABLET (FP) PO SCH (09:39)
[2020-09-01] MEDS: levETIRAcetam 500 MG TABLET (FP) PO SCH ×2 (09:39→21:24)
[2020-09-01] MEDS: ENOXAPARIN NA (PORCINE) 40 MG/0.4 ML DISP.SYRIN SQ SCH ×2 (09:39→21:25)
[2020-09-01] MEDS: DEXAMETHASONE SOD PHOSPHATE 10 MG/1 ML VIAL IVPUSH SCH (09:39)
[2020-09-01] MEDS: VALPROATE SODIUM 250 MG/5 ML UNIT DOSE CUP PO SCH ×2 (09:40→21:24)
[2020-09-01] MEDS: BENZTROPINE MESYLATE 1 MG TABLET PO SCH ×2 (09:40→21:24)
[2020-09-01] MEDS: risperiDONE 1 MG TABLET PO SCH ×2 (09:41→21:24)
[2020-09-01] MEDS: POLYETHYLENE GLYCOL 3350 119 GM BTL PO SCH (09:41)
[2020-09-01] MEDS ORDERED: POTASSIUM CHLORIDE TABS 20 MEQ TABLET.ER (FP) PO ONE (12:03)
[2020-09-01 12:32] LABS: ANISOCYTOSIS 0; MACROCYTOSIS 0; OVALOCYTE 1+; PLATELET ESTIMATE NORMAL
[2020-09-01 16:46] VITALS: BMI 39.4
[2020-09-01] MEDS ORDERED: PT OWN MED DRAWER 7, Y5N ONE ×2 (17:45→21:09)
[2020-09-01] MEDS ORDERED: CHLORHEXIDINE GLUCONATE 4% CLEANSER FOR DECOLONIZATION TP SCH (22:00)
[2020-09-02 06:47] LABS: CHLORIDE 107 mmol/L (98-107); SODIUM 140 mmol/L (136-145)
[2020-09-02 06:50] LABS: ALBUMIN 3.2 g/dl (3.4-5.0); ANION GAP 3 MMOL/L (8-16); BASO % 0.3 % (0-2.0); BLOOD UREA NITROGEN 25.2 mg/dL (7-18); CALCIUM 8.9 mg/dL (8.5-10.1); CO2 31 mmol/L (21-32); EOS % 0.7 % (0-4.5); GLUCOSE,RANDOM 93 mg/dL (74-106); HEMOGLOBIN 12.9 GM/dL (11.7-16.9); LYMPH % 36.1 % (8-40); MAGNESIUM 2.3 mg/dL (1.8-2.4); MCH 30.9 pg (25.7-33.7); MCHC 33.9 g/dl (32.0-35.9); MEAN CELL VOLUME 91.3 fl (80-96); MEAN PLT VOLUME 8.6 fl (7.5-11.1); MONO % 11.2 % (3.8-10.2); NEUT % 51.7 % (42.8-82.8); PLATELET COUNT 290 K/MM3 (134-434); RBC 4.16 M/mm3 (4.00-5.60); RDW 14.4 % (11.9-15.9); WHITE BLOOD COUNT 11.3 K/mm3 (4.0-10.0)
[2020-09-02 06:52] LABS: SGOT/AST 58 U/L (15-37); SGPT/ALT 111 U/L (13-61)
[2020-09-02 06:54] LABS: CREATININE 0.6 mg/dL (0.55-1.3)
[2020-09-02 06:55] LABS: TOT PROT 6.2 g/dl (6.4-8.2)
[2020-09-02 06:57] LABS: ALK PHOS 55 U/L (45-117)
[2020-09-02] MEDS ORDERED: PT OWN MED DRAWER 7, Y5N ONE ×4 (08:57→20:33)
[2020-09-02] MEDS: ZINC SULFATE 220 MG CAPSULE (FP) PO SCH (09:33)
[2020-09-02] MEDS: ASCORBIC ACID 500 MG TABLET (FP) PO SCH (09:33)
[2020-09-02] MEDS: ENOXAPARIN NA (PORCINE) 40 MG/0.4 ML DISP.SYRIN SQ SCH ×2 (09:33→22:16)
[2020-09-02] MEDS: levETIRAcetam 500 MG TABLET (FP) PO SCH ×2 (09:33→22:17)
[2020-09-02] MEDS: DEXAMETHASONE SOD PHOSPHATE 10 MG/1 ML VIAL IVPUSH SCH (09:33)
[2020-09-02] MEDS: AMINO ACIDS/PROTEIN HYDROLYS 30 ML LIQUID.PKT PO SCH ×2 (09:33→16:44)
[2020-09-02] MEDS: TAMSULOSIN HCL 0.4 MG CAP PO SCH (09:34)
[2020-09-02] MEDS: BENZTROPINE MESYLATE 1 MG TABLET PO SCH ×2 (10:37→22:16)
[2020-09-02] MEDS: VALPROATE SODIUM 250 MG/5 ML UNIT DOSE CUP PO SCH ×2 (10:37→22:15)
[2020-09-02] MEDS: risperiDONE 1 MG TABLET PO SCH ×2 (10:38→22:17)
[2020-09-02] MEDS: POLYETHYLENE GLYCOL 3350 119 GM BTL PO SCH (10:38)
[2020-09-02] MEDS ORDERED: SODIUM CHLORIDE 500 ML IV STA (12:42)
[2020-09-02 17:55] LABS: CHOLESTEROL 161 mg/dL (50-200); TRIGLYCERIDES 137 mg/dL (0-150)
[2020-09-02 17:57] LABS: LDL CHOLESTEROL (ONLY SJRH) 106 mg/dL (5-100)
[2020-09-02 17:58] LABS: HDL CHOLESTEROL 39 mg/dL (40-60)
[2020-09-02 18:00] LABS: N-TERMINAL BNP 17.6 pg/ml (5-125)
[2020-09-03] MEDS ORDERED: PT OWN MED DRAWER 7, Y5N ONE ×3 (06:53→21:27)
[2020-09-03 07:14] LABS: BASO % 1.1 % (0-2.0); EOS % 0.4 % (0-4.5); HEMATOCRIT 38.8 % (35.4-49); HEMOGLOBIN 12.7 GM/dL (11.7-16.9); LYMPH % 40.1 % (8-40); MCH 30.1 pg (25.7-33.7); MCHC 32.8 g/dl (32.0-35.9); MEAN CELL VOLUME 91.8 fl (80-96); MEAN PLT VOLUME 8.6 fl (7.5-11.1); MONO % 10.6 % (3.8-10.2); NEUT % 47.8 % (42.8-82.8); PLATELET COUNT 311 K/MM3 (134-434); RBC 4.23 M/mm3 (4.00-5.60); RDW 14.6 % (11.9-15.9); WHITE BLOOD COUNT 11.1 K/mm3 (4.0-10.0)
[2020-09-03 07:35] LABS: CHLORIDE 107 mmol/L (98-107); SODIUM 142 mmol/L (136-145)
[2020-09-03 07:43] LABS: CALCIUM 8.9 mg/dL (8.5-10.1); CREATININE 0.7 mg/dL (0.55-1.3); GLUCOSE,RANDOM 86 mg/dL (74-106)
[2020-09-03 07:44] LABS: ALBUMIN 3.4 g/dl (3.4-5.0); ANION GAP 4 MMOL/L (8-16); BLOOD UREA NITROGEN 21.3 mg/dL (7-18); CO2 30 mmol/L (21-32); MAGNESIUM 2.4 mg/dL (1.8-2.4); SGPT/ALT 112 U/L (13-61)
[2020-09-03 07:45] LABS: BILIRUBIN,TOTAL 0.7 mg/dL (0.2-1); TOT PROT 6.6 g/dl (6.4-8.2)
[2020-09-03 07:46] LABS: ALK PHOS 56 U/L (45-117)
[2020-09-03 07:47] LABS: SGOT/AST 49 U/L (15-37)
[2020-09-03] MEDS: risperiDONE 1 MG TABLET PO SCH ×2 (09:08→21:35)
[2020-09-03] MEDS: POLYETHYLENE GLYCOL 3350 119 GM BTL PO SCH (09:08)
[2020-09-03] MEDS: AMINO ACIDS/PROTEIN HYDROLYS 30 ML LIQUID.PKT PO SCH ×2 (09:08→17:00)
[2020-09-03] MEDS: TAMSULOSIN HCL 0.4 MG CAP PO SCH (09:08)
[2020-09-03] MEDS: ENOXAPARIN NA (PORCINE) 40 MG/0.4 ML DISP.SYRIN SQ SCH ×2 (09:08→21:34)
[2020-09-03] MEDS: ZINC SULFATE 220 MG CAPSULE (FP) PO SCH (09:09)
[2020-09-03] MEDS: DEXAMETHASONE SOD PHOSPHATE 10 MG/1 ML VIAL IVPUSH SCH (09:09)
[2020-09-03] MEDS: levETIRAcetam 500 MG TABLET (FP) PO SCH ×2 (09:09→21:34)
[2020-09-03] MEDS: ASCORBIC ACID 500 MG TABLET (FP) PO SCH (09:09)
[2020-09-03] MEDS: BENZTROPINE MESYLATE 1 MG TABLET PO SCH ×2 (09:11→21:35)
[2020-09-03] MEDS: VALPROATE SODIUM 250 MG/5 ML UNIT DOSE CUP PO SCH ×2 (09:11→21:34)
[2020-09-04 04:11] LABS: SARS-CoV-2 NAA Not Detected (Not Detected)
[2020-09-04 06:54] LABS: BASO % 0.5 % (0-2.0); EOS % 0.4 % (0-4.5); HEMATOCRIT 35.7 % (35.4-49); HEMOGLOBIN 11.9 GM/dL (11.7-16.9); LYMPH % 41.8 % (8-40); MCH 30.1 pg (25.7-33.7); MCHC 33.3 g/dl (32.0-35.9); MEAN CELL VOLUME 90.6 fl (80-96); MEAN PLT VOLUME 8.6 fl (7.5-11.1); MONO % 10.4 % (3.8-10.2); NEUT % 46.9 % (42.8-82.8); PLATELET COUNT 273 K/MM3 (134-434); RBC 3.94 M/mm3 (4.00-5.60); RDW 14.5 % (11.9-15.9)
[2020-09-04 07:13] LABS: CHLORIDE 106 mmol/L (98-107); SODIUM 140 mmol/L (136-145)
[2020-09-04 07:19] LABS: ANION GAP 3 MMOL/L (8-16); BLOOD UREA NITROGEN 20.2 mg/dL (7-18); CALCIUM 8.8 mg/dL (8.5-10.1); CO2 31 mmol/L (21-32); GLUCOSE,RANDOM 81 mg/dL (74-106); MAGNESIUM 2.6 mg/dL (1.8-2.4)
[2020-09-04 07:21] LABS: CREATININE 0.5 mg/dL (0.55-1.3); SGPT/ALT 91 U/L (13-61)
[2020-09-04 07:22] LABS: SGOT/AST 33 U/L (15-37)
[2020-09-04 07:23] LABS: BILIRUBIN,TOTAL 0.6 mg/dL (0.2-1)
[2020-09-04 07:25] LABS: ALK PHOS 52 U/L (45-117)
[2020-09-04] MEDS: TAMSULOSIN HCL 0.4 MG CAP PO SCH (08:13)
[2020-09-04] MEDS: AMINO ACIDS/PROTEIN HYDROLYS 30 ML LIQUID.PKT PO SCH ×2 (08:13→16:59)
[2020-09-04] MEDS ORDERED: PT OWN MED DRAWER 7, Y5N ONE (10:23)
[2020-09-04] MEDS: ENOXAPARIN NA (PORCINE) 40 MG/0.4 ML DISP.SYRIN SQ SCH ×2 (11:00→21:36)
[2020-09-04] MEDS: VALPROATE SODIUM 250 MG/5 ML UNIT DOSE CUP PO SCH ×2 (11:00→21:37)
[2020-09-04] MEDS: ASCORBIC ACID 500 MG TABLET (FP) PO SCH (11:01)
[2020-09-04] MEDS: BENZTROPINE MESYLATE 1 MG TABLET PO SCH ×2 (11:01→21:37)
[2020-09-04] MEDS: ZINC SULFATE 220 MG CAPSULE (FP) PO SCH (11:01)
[2020-09-04] MEDS: DEXAMETHASONE SOD PHOSPHATE 10 MG/1 ML VIAL IVPUSH SCH (11:01)
[2020-09-04] MEDS: levETIRAcetam 500 MG TABLET (FP) PO SCH ×2 (11:01→21:37)
[2020-09-04] MEDS: POLYETHYLENE GLYCOL 3350 119 GM BTL PO SCH (11:02)
[2020-09-04] MEDS: risperiDONE 1 MG TABLET PO SCH ×2 (11:09→21:37)
[2020-09-05] MEDS ORDERED: PT OWN MED DRAWER 7, Y5N ONE ×6 (08:21→21:37)
[2020-09-05] MEDS: AMINO ACIDS/PROTEIN HYDROLYS 30 ML LIQUID.PKT PO SCH ×2 (09:22→16:50)
[2020-09-05] MEDS: ENOXAPARIN NA (PORCINE) 40 MG/0.4 ML DISP.SYRIN SQ SCH ×2 (09:23→21:35)
[2020-09-05] MEDS: POLYETHYLENE GLYCOL 3350 119 GM BTL PO SCH (09:23)
[2020-09-05] MEDS: ZINC SULFATE 220 MG CAPSULE (FP) PO SCH (09:23)
[2020-09-05] MEDS: TAMSULOSIN HCL 0.4 MG CAP PO SCH (09:23)
[2020-09-05] MEDS: levETIRAcetam 500 MG TABLET (FP) PO SCH ×2 (09:23→21:33)
[2020-09-05] MEDS: BENZTROPINE MESYLATE 1 MG TABLET PO SCH ×2 (09:23→22:17)
[2020-09-05] MEDS: ASCORBIC ACID 500 MG TABLET (FP) PO SCH (09:23)
[2020-09-05] MEDS: DEXAMETHASONE SOD PHOSPHATE 10 MG/1 ML VIAL IVPUSH SCH (09:24)
[2020-09-05] MEDS: VALPROATE SODIUM 250 MG/5 ML UNIT DOSE CUP PO SCH ×2 (10:01→21:33)
[2020-09-05] MEDS: risperiDONE 1 MG TABLET PO SCH ×2 (10:01→21:34)
[2020-09-05 11:14] LABS: BASO % 0.6 % (0-2.0); EOS % 0.7 % (0-4.5); HEMATOCRIT 38.1 % (35.4-49); HEMOGLOBIN 12.9 GM/dL (11.7-16.9); LYMPH % 41.5 % (8-40); MCH 30.3 pg (25.7-33.7); MCHC 33.8 g/dl (32.0-35.9); MEAN CELL VOLUME 89.7 fl (80-96); MEAN PLT VOLUME 8.8 fl (7.5-11.1); MONO % 9.4 % (3.8-10.2); NEUT % 47.8 % (42.8-82.8); PLATELET COUNT 289 K/MM3 (134-434); RBC 4.25 M/mm3 (4.00-5.60); RDW 14.2 % (11.9-15.9); WHITE BLOOD COUNT 10.8 K/mm3 (4.0-10.0)
[2020-09-05 11:37] LABS: CHLORIDE 104 mmol/L (98-107); SODIUM 139 mmol/L (136-145)
[2020-09-05 11:42] LABS: BLOOD UREA NITROGEN 15.1 mg/dL (7-18)
[2020-09-05 11:43] LABS: ALBUMIN 3.5 g/dl (3.4-5.0); GLUCOSE,RANDOM 93 mg/dL (74-106)
[2020-09-05 11:45] LABS: ANION GAP 6 MMOL/L (8-16); CO2 29 mmol/L (21-32); SGOT/AST 36 U/L (15-37); SGPT/ALT 88 U/L (13-61)
[2020-09-05 11:48] LABS: ALK PHOS 62 U/L (45-117); BILIRUBIN,TOTAL 0.5 mg/dL (0.2-1); CREATININE 0.6 mg/dL (0.55-1.3)
[2020-09-05 11:51] LABS: TOT PROT 6.7 g/dl (6.4-8.2)
[2020-09-06] MEDS ORDERED: PT OWN MED DRAWER 7, Y5N ONE ×5 (06:12→21:47)
[2020-09-06 07:09] LABS: BASO % 0.5 % (0-2.0); EOS % 0.2 % (0-4.5); HEMATOCRIT 37.4 % (35.4-49); HEMOGLOBIN 12.5 GM/dL (11.7-16.9); MCH 30.5 pg (25.7-33.7); MCHC 33.5 g/dl (32.0-35.9); MEAN CELL VOLUME 91.1 fl (80-96); MEAN PLT VOLUME 9.1 fl (7.5-11.1); NEUT % 47.3 % (42.8-82.8); PLATELET COUNT 250 K/MM3 (134-434); RDW 14.5 % (11.9-15.9); WHITE BLOOD COUNT 12.8 K/mm3 (4.0-10.0)
[2020-09-06 07:33] LABS: CHLORIDE 107 mmol/L (98-107); SODIUM 143 mmol/L (136-145)
[2020-09-06 07:42] LABS: CALCIUM 9.3 mg/dL (8.5-10.1)
[2020-09-06 07:43] LABS: ALBUMIN 3.4 g/dl (3.4-5.0); ANION GAP 6 MMOL/L (8-16); BLOOD UREA NITROGEN 18.5 mg/dL (7-18); CO2 30 mmol/L (21-32); GLUCOSE,RANDOM 85 mg/dL (74-106); MAGNESIUM 2.2 mg/dL (1.8-2.4)
[2020-09-06 07:46] LABS: CREATININE 0.6 mg/dL (0.55-1.3); SGOT/AST 30 U/L (15-37); SGPT/ALT 79 U/L (13-61)
[2020-09-06 07:47] LABS: BILIRUBIN,TOTAL 0.6 mg/dL (0.2-1); TOT PROT 6.3 g/dl (6.4-8.2)
[2020-09-06 07:49] LABS: ALK PHOS 54 U/L (45-117)
[2020-09-06] MEDS: TAMSULOSIN HCL 0.4 MG CAP PO SCH (09:53)
[2020-09-06] MEDS: ZINC SULFATE 220 MG CAPSULE (FP) PO SCH (09:53)
[2020-09-06] MEDS: ENOXAPARIN NA (PORCINE) 40 MG/0.4 ML DISP.SYRIN SQ SCH ×2 (09:53→21:57)
[2020-09-06] MEDS: ASCORBIC ACID 500 MG TABLET (FP) PO SCH (09:53)
[2020-09-06] MEDS: AMINO ACIDS/PROTEIN HYDROLYS 30 ML LIQUID.PKT PO SCH ×2 (09:53→17:32)
[2020-09-06] MEDS: levETIRAcetam 500 MG TABLET (FP) PO SCH ×2 (09:54→21:57)
[2020-09-06] MEDS: risperiDONE 1 MG TABLET PO SCH ×2 (09:54→21:57)
[2020-09-06] MEDS: DEXAMETHASONE SOD PHOSPHATE 10 MG/1 ML VIAL IVPUSH SCH (09:54)
[2020-09-06] MEDS: BENZTROPINE MESYLATE 1 MG TABLET PO SCH ×2 (09:54→21:57)
[2020-09-06] MEDS: VALPROATE SODIUM 250 MG/5 ML UNIT DOSE CUP PO SCH ×2 (09:54→21:57)
[2020-09-06] MEDS: POLYETHYLENE GLYCOL 3350 119 GM BTL PO SCH (09:56)
[2020-09-07 06:40] LABS: BASO % 0.7 % (0-2.0); EOS % 0.2 % (0-4.5); HEMATOCRIT 36.5 % (35.4-49); HEMOGLOBIN 12.2 GM/dL (11.7-16.9); LYMPH % 37.1 % (8-40); MCH 30.2 pg (25.7-33.7); MCHC 33.5 g/dl (32.0-35.9); MEAN CELL VOLUME 90.1 fl (80-96); MEAN PLT VOLUME 9.2 fl (7.5-11.1); MONO % 9.1 % (3.8-10.2); NEUT % 52.9 % (42.8-82.8); PLATELET COUNT 251 K/MM3 (134-434); RBC 4.05 M/mm3 (4.00-5.60); RDW 14.4 % (11.9-15.9); WHITE BLOOD COUNT 12.9 K/mm3 (4.0-10.0)
[2020-09-07 06:55] LABS: CHLORIDE 106 mmol/L (98-107); SODIUM 142 mmol/L (136-145)
[2020-09-07 06:59] LABS: ALBUMIN 3.2 g/dl (3.4-5.0); ANION GAP 4 MMOL/L (8-16); BLOOD UREA NITROGEN 19.3 mg/dL (7-18); CALCIUM 8.8 mg/dL (8.5-10.1); CO2 32 mmol/L (21-32); GLUCOSE,RANDOM 87 mg/dL (74-106); MAGNESIUM 2.3 mg/dL (1.8-2.4)
[2020-09-07 07:02] LABS: CREATININE 0.6 mg/dL (0.55-1.3); SGOT/AST 29 U/L (15-37); SGPT/ALT 80 U/L (13-61)
[2020-09-07 07:04] LABS: BILIRUBIN,TOTAL 0.5 mg/dL (0.2-1); TOT PROT 6.3 g/dl (6.4-8.2)
[2020-09-07 07:05] LABS: ALK PHOS 53 U/L (45-117)
[2020-09-07] MEDS: TAMSULOSIN HCL 0.4 MG CAP PO SCH (08:43)
[2020-09-07] MEDS: AMINO ACIDS/PROTEIN HYDROLYS 30 ML LIQUID.PKT PO SCH (08:43)
[2020-09-07] MEDS ORDERED: PT OWN MED DRAWER 7, Y5N ONE (09:22)
[2020-09-07] MEDS: ZINC SULFATE 220 MG CAPSULE (FP) PO SCH (09:28)
[2020-09-07] MEDS: DEXAMETHASONE SOD PHOSPHATE 10 MG/1 ML VIAL IVPUSH SCH (09:28)
[2020-09-07] MEDS: ENOXAPARIN NA (PORCINE) 40 MG/0.4 ML DISP.SYRIN SQ SCH (09:28)
[2020-09-07] MEDS: ASCORBIC ACID 500 MG TABLET (FP) PO SCH (09:28)
[2020-09-07] MEDS: levETIRAcetam 500 MG TABLET (FP) PO SCH (09:28)
[2020-09-07] MEDS: risperiDONE 1 MG TABLET PO SCH (09:29)
[2020-09-07] MEDS: VALPROATE SODIUM 250 MG/5 ML UNIT DOSE CUP PO SCH (09:29)
[2020-09-07] MEDS: BENZTROPINE MESYLATE 1 MG TABLET PO SCH (09:29)
[2020-09-07] MEDS: POLYETHYLENE GLYCOL 3350 119 GM BTL PO SCH (09:30)
[2020-09-07] MEDS ORDERED: DIVALPROEX SODIUM 500 MG TABLET E.C. PO SCH (10:00)
[2020-09-07 10:35] VITALS: BP 115/65; PULSE 73; TEMP 98
== END 2020-09-07 13:24 | disposition home or self-care (01) | DRG 951 ==
LOC: JER 01:31 → JERBED 02:56 → J4S 13:09 → JICU 08-24 06:37 → J4S 08-31 23:10
PROVIDERS: ADMIT Hospitalist; ATTEND Nurse Practitioner Family
PROC: XW033E5 Introduction of Remdesivir Anti-infective into Peripheral Vein, Percutaneous Approach, New Technology Group 5 (ICD-10-PCS; principal; 2020-08-22)
PROC: XW13325 Transfusion of Convalescent Plasma (Nonautologous) into Peripheral Vein, Percutaneous Approach, New Technology Group 5 (ICD-10-PCS; 2020-08-24)
PROC: 0CHY7BZ Insertion of Airway into Mouth and Throat, Via Natural or Artificial Opening (ICD-10-PCS; 2020-08-24)
PROC: 5A1955Z Respiratory Ventilation, Greater than 96 Consecutive Hours (ICD-10-PCS; 2020-08-24)
PROC: 0DH67UZ Insertion of Feeding Device into Stomach, Via Natural or Artificial Opening (ICD-10-PCS; 2020-08-24)
PROC: 3E0G76Z Introduction of Nutritional Substance into Upper GI, Via Natural or Artificial Opening (ICD-10-PCS; 2020-08-24)
PROC: 05HM33Z Insertion of Infusion Device into Right Internal Jugular Vein, Percutaneous Approach (ICD-10-PCS; 2020-08-25)
PROC: B543ZZA Ultrasonography of Right Jugular Veins, Guidance (ICD-10-PCS; 2020-08-25)
DX: U07.1 COVID-19 (principal); J12.82 Pneumonia due to coronavirus disease 2019; J96.01 Acute respiratory failure with hypoxia; F20.89 Other schizophrenia; R00.0 Tachycardia, unspecified; I95.9 Hypotension, unspecified; G47.30 Sleep apnea, unspecified; F81.9 Developmental disorder of scholastic skills, unspecified; E66.01 Morbid (severe) obesity due to excess calories; G40.909 Epilepsy, unspecified, not intractable, without status epilepticus; Z68.41 Body mass index [BMI] 40.0-44.9, adult; J90 Pleural effusion, not elsewhere classified
CPT/HCPCS: 31500; 36415; 36430; 36600; 71045-TC-FY; 71275-TC; 80053; 80061; 80074; 80164; 80177; 81003; 82728; 82803; 82962; 83036; 83605; 83615; 83721; 83735; 83880; 84100; 84439; 84443; 84484; 85025; 85027; 85379; 85610; 85651; 85730; 86140; 86480; 86769; 86803; 86850; 86900; 86901; 87040; 87070; 87086; 87205; 87804; 87899; 93005; 93010; 93306-TC; 94002; 94010; 94761; 97116-GP; 97161-GP; 99285-25; C9399; C9803; J0131; J1100; J2794; J3262; P9017; U0003; U0005

== ENCOUNTER 2020-09-15 05:42 | Emergency (ER) | payer OTHER ==
[2020-09-15 06:18] VITALS: BMI 38.0
[2020-09-15] MEDS ORDERED: LACTATED RINGERS SOLUTION 1000 ML INFUS.BAG IV ONE ×2 (07:32→09:44)
[2020-09-15] MEDS ORDERED: SODIUM CHLORIDE IV ONE (07:33)
[2020-09-15] MEDS ORDERED: ACETAMINOPHEN INJECTION 100 ML IVPB ONE (07:52)
[2020-09-15] MEDS ORDERED: ACETAMINOPHEN 1000 MG/100 ML VIAL (NON FORMULARY) IVPB ONE (08:10)
[2020-09-15 08:24] LABS: INR 0.94 (0.83-1.09); PROTHROMBIN TIME (PATIENT) 11.6 SEC (9.7-13.0)
[2020-09-15 08:27] LABS: ACTIVATED PTT 27.2 SECONDS (25.2-36.5)
[2020-09-15 08:33] LABS: CHLORIDE 109 mmol/L (98-107); SODIUM 142 mmol/L (136-145)
[2020-09-15 08:35] LABS: ANION GAP 2 MMOL/L (8-16); BLOOD UREA NITROGEN 15.1 mg/dL (7-18); CALCIUM 8.3 mg/dL (8.5-10.1); CO2 31 mmol/L (21-32)
[2020-09-15 08:36] LABS: ALBUMIN 3.5 g/dl (3.4-5.0); GLUCOSE,RANDOM 76 mg/dL (74-106)
[2020-09-15 08:38] LABS: CREATININE 0.7 mg/dL (0.55-1.3)
[2020-09-15 08:39] LABS: SGOT/AST 16 U/L (15-37); SGPT/ALT 52 U/L (13-61)
[2020-09-15 08:40] LABS: BILIRUBIN,TOTAL 0.4 mg/dL (0.2-1); TOT PROT 5.9 g/dl (6.4-8.2)
[2020-09-15 08:45] LABS: ALK PHOS 87 U/L (45-117)
[2020-09-15 08:48] LABS: BASO % 0.4 % (0-2.0); EOS % 1.5 % (0-4.5); HEMATOCRIT 36.5 % (35.4-49); HEMOGLOBIN 12.5 GM/dL (11.7-16.9); LYMPH % 44.1 % (8-40); MCH 31.3 pg (25.7-33.7); MCHC 34.1 g/dl (32.0-35.9); MEAN CELL VOLUME 91.8 fl (80-96); MEAN PLT VOLUME 8.8 fl (7.5-11.1); MONO % 12.5 % (3.8-10.2); NEUT % 41.5 % (42.8-82.8); PLATELET COUNT 115 K/MM3 (134-434); RBC 3.98 M/mm3 (4.00-5.60); RDW 16.1 % (11.9-15.9); WHITE BLOOD COUNT 11.4 K/mm3 (4.0-10.0)
[2020-09-15 09:10] LABS: VENOUS BASE EXCESS 2.6 mmol/L (-2-2); VENOUS O2 SATURATION 87.2 % (70-80); VENOUS PCO2 53.7 mmHg (38-52); VENOUS PH 7.353 (7.310-7.410)
[2020-09-15 10:25] VITALS: BP 116/65; PULSE 80; TEMP 98.1
[2020-09-15 10:26] LABS: ANISOCYTOSIS 0; MACROCYTOSIS 0; PLATELET ESTIMATE DECREASED
== END 2020-09-15 11:00 | disposition home or self-care (01) ==
LOC: JER 05:42
PROC: 3E033NZ Introduction of Analgesics, Hypnotics, Sedatives into Peripheral Vein, Percutaneous Approach (ICD-10-PCS; principal; 2020-09-15)
DX: M79.604 Pain in right leg (principal); M79.605 Pain in left leg
CPT/HCPCS: 36415; 71045-TC-FY; 80053; 82803; 83605; 84484; 85025; 85379; 85610; 85730; 87040; 87804; 93005; 93010; 93970-TC; 99285-25; C9803; J0131; U0003; U0005

== ENCOUNTER 2022-11-08 08:21 | Emergency (ER) | payer OTHER ==
[2022-11-08 08:27] VITALS: BMI 40.3
[2022-11-08] MEDS ORDERED: ACETAMINOPHEN 500 MG TABLET (FP) PO ONE (09:23)
[2022-11-08] MEDS ORDERED: KETOROLAC TROMETHAMINE 30 MG/1 ML VIAL IM ONE (09:23)
[2022-11-08] MEDS ORDERED: KETOROLAC TROMETHAMINE 30 MG/1 ML VIAL ONE (09:34)
[2022-11-08] MEDS ORDERED: ACETAMINOPHEN 500 MG TABLET (FP) ONE (09:34)
[2022-11-08 11:02] VITALS: BP 100/61; PULSE 63; RESP 17; TEMP 97.5
== END 2022-11-08 11:02 | disposition home or self-care (01) ==
LOC: JER 08:21 → JERFT 08:21
PROC: 3E0233Z Introduction of Anti-inflammatory into Muscle, Percutaneous Approach (ICD-10-PCS; principal; 2022-11-08)
DX: M25.561 Pain in right knee (principal)
CPT/HCPCS: 73562-TC-RT-FY; 99284-25